=== PATIENT | male | born 1950 | race Caucasian/White ===

== ENCOUNTER 2018-03-26 09:02 | Inpatient (IN) | payer MEDICARE, MEDICAID ==
[~2018-03-26] VITALS: Ht 180.3 cm; Wt 132.2 kg
[~2018-03-26 09:02] MED LIST: ARIP10TA33 PO; ASPI325T17 PO; ATOR20TA9 PO; CARB100T3 PO; CARB1TAB43 PO; DIVA-61 PO; DIVA500T17 PO; FLUP5TAB PO; FURO20TA3 PO; LEVE500T53 PO; LEVE500T8 PO; LEVETIRACETAM; LEVO500T47 PO; LEVO50TA5 PO; LISI5TAB7 PO; METO25TA35 PO; OMEP20TA62 PO; PANT40TA5 PO; POTA10TA11 PO; POTA20TA91 PO; QUET25TA PO; QUET50TA PO; SODI1TAB PO; TRAZ-136 PO
[2018-03-26] MEDS ORDERED: DOCUSATE 100 MG CAPSULE PO PRN (13:00)
[2018-03-26] MEDS ORDERED: BISACODYL 10 MG SUPP PR PRN (13:00)
[2018-03-26] MEDS ORDERED: POLYETHYLENE GLYCOL 17 GM PACKET PO PRN (13:00)
[2018-03-26 13:20] VITALS: BP 134/97
[2018-03-26] MEDS ORDERED: PLEASE ENTER HEIGHT AND WEIGHT MC SCH (14:00)
[2018-03-26 14:20] LABS: BASOPHILS # (AUTO) 0.02 x10^3/uL (0-0.1); BASOPHILS % (AUTO) 0 % (0-1); EOSINOPHILS # (AUTO) 0.44 x10^3/uL (0-0.4); EOSINOPHILS % (AUTO) 4 % (1-7); LYMPHOCYTES # (AUTO) 1.27 x10^3/uL (1-3.4); LYMPHOCYTES % (AUTO) 12 % (22-44); MD NO; MEAN CORPUSCULAR HEMOGLOBIN 32.8 pg (27.5-34.5); MEAN CORPUSCULAR HGB CONC 34.2 g/dL (33.2-36.2); MEAN CORPUSCULAR VOLUME 95.9 fL (81-97); MEAN PLATELET VOLUME 7.7 fL (7.4-10.4); MONOCYTES % (AUTO) 7 % (2-9); NEUTROPHILS # (AUTO) 7.94 x10^3/uL (1.8-6.8); NEUTROPHILS % (AUTO) 77 % (42-75); PLATELET COUNT 279 x10^3/uL (130-400); RED BLOOD COUNT 5.01 x10^6/uL (4.38-5.82); RED CELL DISTRIBUTION WIDTH 12.9 % (9.4-14.8)
[2018-03-26 14:21] LABS: HCT (SEDRATE) 48.6 % (39.2-51.8)
[2018-03-26 14:33] LABS: ALBUMIN 4.5 g/dL (3.4-5.0); ANION GAP 8 mmol/L (5-15); CALCIUM 9.4 mg/dL (8.5-10.1); CHLORIDE 105 mmol/L (98-107)
[2018-03-26 14:57] LABS: ALANINE AMINOTRANSFERASE 27 U/L (12-78); ALKALINE PHOSPHATASE 70 U/L (45-117); BILIRUBIN,TOTAL 0.7 mg/dL (0.2-1.0); CHOL/HDL RATIO 2.8; CHOLESTEROL, TOTAL 107 mg/dL (140-239); CREATININE 1.34 mg/dL (0.7-1.3); HDL CHOL % 36 % (26-37); HDL CHOLESTEROL (DIRECT) 38 mg/dL (40-60); LDL CHOLESTEROL,CALCULATED 51 mg/dL (54-169); LDL/HDL RATIO 1.3 (0.5-3.0); TOTAL PROTEIN 8.3 g/dL (6.4-8.2); TRIGLYCERIDES 91 mg/dL (50-200); VLDL CHOLESTEROL 18 mg/dL (0-25)
[2018-03-26 15:03] LABS: FOLATE LEVEL > 20.0 ng/mL (3.1-17.5)
[2018-03-26 15:18] LABS: MICROSCOPIC NOT IND
[2018-03-26 15:21] LABS: CULTURE INDICATED? NO
[2018-03-26] MEDS: CARBIDOPA/LEVODOPA CR 25 MG/100 MG TABLET PO SCH ×2 (16:12→21:26)
[2018-03-26 19:50] VITALS: BP 168/114
[2018-03-26] MEDS: QUETIAPINE 25MG TABLET PO SCH (21:26)
[2018-03-26] MEDS: TRAZODONE 50MG TABLET PO SCH (21:26)
[2018-03-26] MEDS: DIVALPROEX 500 MG TABLET.DR PO SCH (21:26)
[2018-03-26] MEDS: ATORVASTATIN 20 MG TABLET PO SCH (21:26)
[2018-03-26] MEDS ORDERED: hydrALAzine 20 MG/ML, 1ML IV PRN (22:00)
[2018-03-26 22:55] VITALS: BP 147/123
[2018-03-27 00:46] VITALS: BP 138/92
[2018-03-27] MEDS: ACETAMINOPHEN 325 MG TABLET PO PRN (04:27)
[2018-03-27] MEDS: PANTOPROZOLE 40MG TABLET PO SCH (07:27)
[2018-03-27 07:32] VITALS: BP 147/107
[2018-03-27] MEDS ORDERED: SODIUM CHLORIDE 1 GM TABLET PO SCH (09:00)
[2018-03-27] MEDS: POTASSIUM CHLORIDE 10 MEQ TABLET.ER PO SCH (09:00)
[2018-03-27] MEDS ORDERED: POTASSIUM CHLORIDE 20 MEQ TAB.ER.PRT ONE (09:11)
[2018-03-27] MEDS: QUETIAPINE 25MG TABLET PO SCH (09:19)
[2018-03-27] MEDS: DIVALPROEX 500 MG TABLET.DR PO SCH (09:19)
[2018-03-27] MEDS: LISINOPRIL 10 MG TABLET PO SCH (09:19)
[2018-03-27] MEDS: CARBIDOPA/LEVODOPA CR 25 MG/100 MG TABLET PO SCH ×4 (09:20→21:27)
[2018-03-27] MEDS: ASPIRIN 325 MG TABLET PO SCH (09:20)
[2018-03-27] MEDS: LEVOTHYROXINE 50 MCG TABLET PO SCH (09:20)
[2018-03-27 11:13] VITALS: BP 155/96
[2018-03-27] MEDS: LEVETIRACETAM 500 MG TABLET PO SCH (11:22)
[2018-03-27 19:54] VITALS: BP 163/124
[2018-03-27] MEDS: VALPROATE SODIUM 250 MG/5 ML ORAL SOLN PO SCH (21:26)
[2018-03-27] MEDS: TRAZODONE 50MG TABLET PO SCH (21:27)
[2018-03-27] MEDS: ATORVASTATIN 20 MG TABLET PO SCH (21:27)
[2018-03-27] MEDS: RISPERIDONE 1 MG TAB.RAPDIS PO SCH (21:35)
[2018-03-28 01:49] VITALS: BP 130/89
[2018-03-28 02:31] VITALS: BP 126/87
[2018-03-28 03:03] LABS: TROPONIN I < 0.015 ng/mL (0.000-0.045)
[2018-03-28 07:24] VITALS: BP 134/95
[2018-03-28] MEDS: PANTOPROZOLE 40MG TABLET PO SCH (07:51)
[2018-03-28] MEDS ORDERED: POTASSIUM CHLORIDE 20 MEQ TAB.ER.PRT ONE (08:56)
[2018-03-28] MEDS: VALPROATE SODIUM 250 MG/5 ML ORAL SOLN PO SCH ×2 (08:59→20:02)
[2018-03-28] MEDS: ASPIRIN 325 MG TABLET PO SCH (09:00)
[2018-03-28] MEDS: LEVOTHYROXINE 50 MCG TABLET PO SCH (09:00)
[2018-03-28] MEDS: CARBIDOPA/LEVODOPA CR 25 MG/100 MG TABLET PO SCH ×3 (09:00→20:02)
[2018-03-28] MEDS: LEVETIRACETAM 500 MG TABLET PO SCH (09:00)
[2018-03-28] MEDS: RISPERIDONE 1 MG TAB.RAPDIS PO SCH ×2 (09:01→20:02)
[2018-03-28] MEDS: LISINOPRIL 10 MG TABLET PO SCH (09:01)
[2018-03-28] MEDS: POTASSIUM CHLORIDE 10 MEQ TABLET.ER PO SCH (09:06)
[2018-03-28 19:45] VITALS: BP_SYST 115; BP_SYST 166; BP_DIAS 83; BP_DIAS 85
[2018-03-28] MEDS: TRAZODONE 50MG TABLET PO SCH (20:02)
[2018-03-28] MEDS: ATORVASTATIN 20 MG TABLET PO SCH (20:02)
[2018-03-29 07:12] VITALS: BP 172/92
[2018-03-29] MEDS: PANTOPROZOLE 40MG TABLET PO SCH (07:44)
[2018-03-29] MEDS: ASPIRIN 325 MG TABLET PO SCH (08:46)
[2018-03-29] MEDS: VALPROATE SODIUM 250 MG/5 ML ORAL SOLN PO SCH ×2 (08:46→21:00)
[2018-03-29] MEDS: LISINOPRIL 10 MG TABLET PO SCH (08:46)
[2018-03-29] MEDS: CARBIDOPA/LEVODOPA CR 25 MG/100 MG TABLET PO SCH ×3 (08:46→20:48)
[2018-03-29] MEDS: LEVOTHYROXINE 50 MCG TABLET PO SCH (08:46)
[2018-03-29] MEDS: LEVETIRACETAM 500 MG TABLET PO SCH (08:46)
[2018-03-29] MEDS: POTASSIUM CHLORIDE 10 MEQ TABLET.ER PO SCH (08:46)
[2018-03-29] MEDS: RISPERIDONE 1 MG TAB.RAPDIS PO SCH ×2 (08:47→20:48)
[2018-03-29] MEDS ORDERED: LORazepam 0.5MG TABLET PO PRN (17:00)
[2018-03-29 19:55] VITALS: BP 109/81
[2018-03-29] MEDS: ATORVASTATIN 20 MG TABLET PO SCH (20:48)
[2018-03-29] MEDS: TRAZODONE 50MG TABLET PO SCH (20:48)
[2018-03-30] MEDS: PANTOPROZOLE 40MG TABLET PO SCH (07:29)
[2018-03-30 07:30] VITALS: BP 89/65
[2018-03-30 08:58] VITALS: BP 106/76
[2018-03-30] MEDS: VALPROATE SODIUM 250 MG/5 ML ORAL SOLN PO SCH (09:27)
[2018-03-30] MEDS: LISINOPRIL 10 MG TABLET PO SCH (09:27)
[2018-03-30] MEDS: CARBIDOPA/LEVODOPA CR 25 MG/100 MG TABLET PO SCH ×3 (09:27→22:14)
[2018-03-30] MEDS: ASPIRIN 325 MG TABLET PO SCH (09:27)
[2018-03-30] MEDS: POTASSIUM CHLORIDE 10 MEQ TABLET.ER PO SCH (09:27)
[2018-03-30] MEDS: LEVETIRACETAM 500 MG TABLET PO SCH (09:27)
[2018-03-30] MEDS: RISPERIDONE 1 MG TAB.RAPDIS PO SCH ×2 (09:28→22:14)
[2018-03-30] MEDS: LEVOTHYROXINE 50 MCG TABLET PO SCH (09:28)
[2018-03-30 20:00] VITALS: BP 114/78
[2018-03-30] MEDS: ATORVASTATIN 20 MG TABLET PO SCH (22:14)
[2018-03-30] MEDS: DIVALPROEX 250 MG TABLET.DR PO SCH (22:14)
[2018-03-30] MEDS: TRAZODONE 50MG TABLET PO SCH (22:14)
[2018-03-31] MEDS: PANTOPROZOLE 40MG TABLET PO SCH (07:42)
[2018-03-31 07:46] VITALS: BP 100/85
[2018-03-31] MEDS: CARBIDOPA/LEVODOPA CR 25 MG/100 MG TABLET PO SCH ×3 (08:14→20:18)
[2018-03-31] MEDS: LEVETIRACETAM 500 MG TABLET PO SCH (08:14)
[2018-03-31] MEDS: POTASSIUM CHLORIDE 10 MEQ TABLET.ER PO SCH (08:14)
[2018-03-31] MEDS: ASPIRIN 325 MG TABLET PO SCH (08:14)
[2018-03-31] MEDS: DIVALPROEX 250 MG TABLET.DR PO SCH ×2 (08:14→20:17)
[2018-03-31] MEDS: LISINOPRIL 10 MG TABLET PO SCH (08:15)
[2018-03-31] MEDS: RISPERIDONE 1 MG TAB.RAPDIS PO SCH ×2 (08:15→20:17)
[2018-03-31] MEDS: LEVOTHYROXINE 50 MCG TABLET PO SCH (08:49)
[2018-03-31 19:59] VITALS: BP 144/66
[2018-03-31] MEDS: TRAZODONE 50MG TABLET PO SCH (20:17)
[2018-03-31] MEDS: ATORVASTATIN 20 MG TABLET PO SCH (20:17)
[2018-03-31] MEDS: NYSTATIN TOPICAL POWDER 15GM TP SCH (20:18)
[2018-04-01] MEDS: PANTOPROZOLE 40MG TABLET PO SCH (07:30)
[2018-04-01 08:11] VITALS: BP 123/93
[2018-04-01] MEDS: ASPIRIN 325 MG TABLET PO SCH (09:33)
[2018-04-01] MEDS: DIVALPROEX 250 MG TABLET.DR PO SCH ×2 (09:34→20:35)
[2018-04-01] MEDS: CARBIDOPA/LEVODOPA CR 25 MG/100 MG TABLET PO SCH ×3 (09:34→20:36)
[2018-04-01] MEDS: LEVETIRACETAM 500 MG TABLET PO SCH (09:34)
[2018-04-01] MEDS: LISINOPRIL 10 MG TABLET PO SCH (09:34)
[2018-04-01] MEDS: LEVOTHYROXINE 50 MCG TABLET PO SCH (09:35)
[2018-04-01] MEDS: POTASSIUM CHLORIDE 10 MEQ TABLET.ER PO SCH (09:38)
[2018-04-01] MEDS: NYSTATIN TOPICAL POWDER 15GM TP SCH ×2 (09:39→20:35)
[2018-04-01] MEDS: RISPERIDONE 1 MG TAB.RAPDIS PO SCH ×2 (09:40→22:36)
[2018-04-01] MEDS: ACETAMINOPHEN 325 MG TABLET PO PRN (19:19)
[2018-04-01 19:41] VITALS: BP 114/84
[2018-04-01] MEDS: ATORVASTATIN 20 MG TABLET PO SCH (20:35)
[2018-04-01] MEDS: TRAZODONE 50MG TABLET PO SCH (20:36)
[2018-04-02 07:30] VITALS: BP 134/89
[2018-04-02] MEDS: ASPIRIN 325 MG TABLET PO SCH (08:54)
[2018-04-02] MEDS: DIVALPROEX 250 MG TABLET.DR PO SCH ×2 (08:54→21:38)
[2018-04-02] MEDS: LISINOPRIL 10 MG TABLET PO SCH (08:54)
[2018-04-02] MEDS: LEVOTHYROXINE 50 MCG TABLET PO SCH (08:55)
[2018-04-02] MEDS: RISPERIDONE 1 MG TAB.RAPDIS PO SCH ×2 (08:55→21:37)
[2018-04-02] MEDS: CARBIDOPA/LEVODOPA CR 25 MG/100 MG TABLET PO SCH ×3 (08:55→21:38)
[2018-04-02] MEDS: POTASSIUM CHLORIDE 10 MEQ TABLET.ER PO SCH (08:56)
[2018-04-02] MEDS: LEVETIRACETAM 500 MG TABLET PO SCH (08:56)
[2018-04-02] MEDS: PANTOPROZOLE 40MG TABLET PO SCH (08:56)
[2018-04-02] MEDS: NYSTATIN TOPICAL POWDER 15GM TP SCH ×2 (09:00→22:00)
[2018-04-02 19:42] VITALS: BP 146/97
[2018-04-02] MEDS: TRAZODONE 50MG TABLET PO SCH (21:38)
[2018-04-02] MEDS: ATORVASTATIN 20 MG TABLET PO SCH (21:38)
[2018-04-03] MEDS: PANTOPROZOLE 40MG TABLET PO SCH (08:24)
[2018-04-03] MEDS: NYSTATIN TOPICAL POWDER 15GM TP SCH ×2 (09:48→22:03)
[2018-04-03] MEDS: ACETAMINOPHEN 325 MG TABLET PO PRN (09:49)
[2018-04-03] MEDS: RISPERIDONE 1 MG TAB.RAPDIS PO SCH ×2 (09:49→21:27)
[2018-04-03] MEDS: LEVOTHYROXINE 50 MCG TABLET PO SCH (09:49)
[2018-04-03] MEDS: DIVALPROEX 250 MG TABLET.DR PO SCH ×2 (09:49→21:26)
[2018-04-03] MEDS: ASPIRIN 325 MG TABLET PO SCH (09:50)
[2018-04-03] MEDS: LEVETIRACETAM 500 MG TABLET PO SCH (09:50)
[2018-04-03] MEDS: CARBIDOPA/LEVODOPA CR 25 MG/100 MG TABLET PO SCH ×3 (09:50→21:26)
[2018-04-03] MEDS: POTASSIUM CHLORIDE 10 MEQ TABLET.ER PO SCH (09:50)
[2018-04-03] MEDS: LISINOPRIL 10 MG TABLET PO SCH (09:50)
[2018-04-03 11:00] VITALS: BP 105/76
[2018-04-03 14:37] VITALS: BP 110/84
[2018-04-03 19:35] VITALS: BP 107/74
[2018-04-03] MEDS: TRAZODONE 50MG TABLET PO SCH (21:26)
[2018-04-03] MEDS: ATORVASTATIN 20 MG TABLET PO SCH (21:26)
[2018-04-04 07:26] VITALS: BP 107/82
[2018-04-04] MEDS: LEVOTHYROXINE 50 MCG TABLET PO SCH (08:08)
[2018-04-04] MEDS: DIVALPROEX 250 MG TABLET.DR PO SCH ×2 (08:08→21:15)
[2018-04-04] MEDS: LEVETIRACETAM 500 MG TABLET PO SCH (08:08)
[2018-04-04] MEDS: CARBIDOPA/LEVODOPA CR 25 MG/100 MG TABLET PO SCH ×3 (08:08→21:16)
[2018-04-04] MEDS: LISINOPRIL 10 MG TABLET PO SCH (08:08)
[2018-04-04] MEDS: ASPIRIN 325 MG TABLET PO SCH (08:08)
[2018-04-04] MEDS: POTASSIUM CHLORIDE 10 MEQ TABLET.ER PO SCH (08:16)
[2018-04-04] MEDS: RISPERIDONE 1 MG TAB.RAPDIS PO SCH ×2 (08:17→21:15)
[2018-04-04] MEDS: PANTOPROZOLE 40MG TABLET PO SCH (08:17)
[2018-04-04] MEDS: NYSTATIN TOPICAL POWDER 15GM TP SCH ×2 (10:00→21:16)
[2018-04-04 19:52] VITALS: BP 118/86
[2018-04-04] MEDS: TRAZODONE 50MG TABLET PO SCH (21:15)
[2018-04-04] MEDS: ATORVASTATIN 20 MG TABLET PO SCH (21:15)
[2018-04-05 07:28] VITALS: BP 151/93
[2018-04-05] MEDS: PANTOPROZOLE 40MG TABLET PO SCH (07:53)
[2018-04-05] MEDS: LEVOTHYROXINE 50 MCG TABLET PO SCH (09:12)
[2018-04-05] MEDS: LEVETIRACETAM 500 MG TABLET PO SCH (09:12)
[2018-04-05] MEDS: RISPERIDONE 1 MG TAB.RAPDIS PO SCH ×2 (09:12→20:16)
[2018-04-05] MEDS: CARBIDOPA/LEVODOPA CR 25 MG/100 MG TABLET PO SCH ×3 (09:12→20:15)
[2018-04-05] MEDS: ASPIRIN 325 MG TABLET PO SCH (09:13)
[2018-04-05] MEDS: LISINOPRIL 10 MG TABLET PO SCH (09:13)
[2018-04-05] MEDS: DIVALPROEX 250 MG TABLET.DR PO SCH ×2 (09:13→20:15)
[2018-04-05] MEDS: POTASSIUM CHLORIDE 10 MEQ TABLET.ER PO SCH (09:25)
[2018-04-05] MEDS: NYSTATIN TOPICAL POWDER 15GM TP SCH ×2 (09:26→20:16)
[2018-04-05 19:52] VITALS: BP 127/89
[2018-04-05] MEDS: TRAZODONE 50MG TABLET PO SCH (20:15)
[2018-04-05] MEDS: ATORVASTATIN 20 MG TABLET PO SCH (20:25)
[2018-04-06 07:32] VITALS: BP 108/75
[2018-04-06] MEDS: ASPIRIN 325 MG TABLET PO SCH (07:36)
[2018-04-06] MEDS: LEVOTHYROXINE 50 MCG TABLET PO SCH (07:37)
[2018-04-06] MEDS: PANTOPROZOLE 40MG TABLET PO SCH (07:37)
[2018-04-06] MEDS: CARBIDOPA/LEVODOPA CR 25 MG/100 MG TABLET PO SCH ×3 (07:37→20:32)
[2018-04-06] MEDS: RISPERIDONE 1 MG TAB.RAPDIS PO SCH ×2 (08:30→20:32)
[2018-04-06] MEDS: POTASSIUM CHLORIDE 10 MEQ TABLET.ER PO SCH (08:30)
[2018-04-06] MEDS: LEVETIRACETAM 500 MG TABLET PO SCH (08:30)
[2018-04-06] MEDS: LISINOPRIL 10 MG TABLET PO SCH (08:30)
[2018-04-06] MEDS: DIVALPROEX 250 MG TABLET.DR PO SCH ×2 (08:30→20:32)
[2018-04-06] MEDS: NYSTATIN TOPICAL POWDER 15GM TP SCH ×2 (08:32→20:32)
[2018-04-06 19:52] VITALS: BP_SYST 118; BP_SYST 152; BP_DIAS 69; BP_DIAS 87
[2018-04-06] MEDS: TRAZODONE 50MG TABLET PO SCH (20:32)
[2018-04-06] MEDS: ATORVASTATIN 20 MG TABLET PO SCH (20:32)
[2018-04-07 07:30] VITALS: BP 110/74
[2018-04-07] MEDS: LEVOTHYROXINE 50 MCG TABLET PO SCH (07:59)
[2018-04-07] MEDS: ASPIRIN 325 MG TABLET PO SCH (07:59)
[2018-04-07] MEDS: PANTOPROZOLE 40MG TABLET PO SCH (07:59)
[2018-04-07] MEDS: POTASSIUM CHLORIDE 10 MEQ TABLET.ER PO SCH (09:32)
[2018-04-07] MEDS: RISPERIDONE 1 MG TAB.RAPDIS PO SCH ×2 (09:32→20:50)
[2018-04-07] MEDS: DIVALPROEX 250 MG TABLET.DR PO SCH ×2 (09:33→20:50)
[2018-04-07] MEDS: LISINOPRIL 10 MG TABLET PO SCH (09:33)
[2018-04-07] MEDS: CARBIDOPA/LEVODOPA CR 25 MG/100 MG TABLET PO SCH ×3 (09:33→20:50)
[2018-04-07] MEDS: LEVETIRACETAM 500 MG TABLET PO SCH (09:33)
[2018-04-07] MEDS: NYSTATIN TOPICAL POWDER 15GM TP SCH ×2 (09:44→21:00)
[2018-04-07 19:30] VITALS: BP 99/64
[2018-04-07] MEDS: ATORVASTATIN 20 MG TABLET PO SCH (20:50)
[2018-04-07] MEDS: TRAZODONE 50MG TABLET PO SCH (20:50)
[2018-04-08] MEDS: PANTOPROZOLE 40MG TABLET PO SCH (07:06)
[2018-04-08 07:35] VITALS: BP 105/73
[2018-04-08] MEDS: ASPIRIN 325 MG TABLET PO SCH (09:00)
[2018-04-08] MEDS: CARBIDOPA/LEVODOPA CR 25 MG/100 MG TABLET PO SCH ×3 (09:10→20:43)
[2018-04-08] MEDS: DIVALPROEX 250 MG TABLET.DR PO SCH ×2 (09:11→20:43)
[2018-04-08] MEDS: POTASSIUM CHLORIDE 10 MEQ TABLET.ER PO SCH (09:11)
[2018-04-08] MEDS: LEVOTHYROXINE 50 MCG TABLET PO SCH (09:11)
[2018-04-08] MEDS: LEVETIRACETAM 500 MG TABLET PO SCH (09:11)
[2018-04-08] MEDS: LISINOPRIL 10 MG TABLET PO SCH (09:11)
[2018-04-08] MEDS: RISPERIDONE 1 MG TAB.RAPDIS PO SCH ×2 (09:12→20:43)
[2018-04-08] MEDS: NYSTATIN TOPICAL POWDER 15GM TP SCH ×2 (09:27→20:43)
[2018-04-08 19:58] VITALS: BP 102/69
[2018-04-08] MEDS: TRAZODONE 50MG TABLET PO SCH (20:42)
[2018-04-08] MEDS: ATORVASTATIN 20 MG TABLET PO SCH (20:43)
[2018-04-09] MEDS: PANTOPROZOLE 40MG TABLET PO SCH (07:28)
[2018-04-09 07:34] VITALS: BP 114/78
[2018-04-09] MEDS ORDERED: LEVOTHYROXINE 100 MCG TABLET ONE (08:55)
[2018-04-09] MEDS: ASPIRIN 325 MG TABLET PO SCH (08:57)
[2018-04-09] MEDS: DIVALPROEX 250 MG TABLET.DR PO SCH ×2 (08:57→21:13)
[2018-04-09] MEDS: LEVETIRACETAM 500 MG TABLET PO SCH (08:57)
[2018-04-09] MEDS: LISINOPRIL 10 MG TABLET PO SCH (08:58)
[2018-04-09] MEDS: POTASSIUM CHLORIDE 10 MEQ TABLET.ER PO SCH (08:58)
[2018-04-09] MEDS: CARBIDOPA/LEVODOPA CR 25 MG/100 MG TABLET PO SCH ×3 (08:58→21:13)
[2018-04-09] MEDS: LEVOTHYROXINE 50 MCG TABLET PO SCH (08:59)
[2018-04-09] MEDS: NYSTATIN TOPICAL POWDER 15GM TP SCH ×2 (09:00→21:13)
[2018-04-09] MEDS: RISPERIDONE 1 MG TAB.RAPDIS PO SCH ×2 (09:03→21:13)
[2018-04-09 19:33] VITALS: BP 123/64
[2018-04-09] MEDS: TRAZODONE 50MG TABLET PO SCH (21:13)
[2018-04-09] MEDS: ATORVASTATIN 20 MG TABLET PO SCH (21:13)
[2018-04-10] MEDS: PANTOPROZOLE 40MG TABLET PO SCH (07:35)
[2018-04-10 07:40] VITALS: BP 106/48
[2018-04-10] MEDS: ASPIRIN 325 MG TABLET PO SCH (08:48)
[2018-04-10] MEDS: LEVETIRACETAM 500 MG TABLET PO SCH (08:49)
[2018-04-10] MEDS: POTASSIUM CHLORIDE 10 MEQ TABLET.ER PO SCH (08:49)
[2018-04-10] MEDS: LISINOPRIL 10 MG TABLET PO SCH (08:49)
[2018-04-10] MEDS: DIVALPROEX 250 MG TABLET.DR PO SCH ×2 (08:49→22:14)
[2018-04-10] MEDS: RISPERIDONE 1 MG TAB.RAPDIS PO SCH ×2 (08:50→22:13)
[2018-04-10] MEDS: CARBIDOPA/LEVODOPA CR 25 MG/100 MG TABLET PO SCH ×3 (08:50→22:14)
[2018-04-10] MEDS: NYSTATIN TOPICAL POWDER 15GM TP SCH ×2 (08:50→22:14)
[2018-04-10] MEDS: LEVOTHYROXINE 50 MCG TABLET PO SCH (08:50)
[2018-04-10 19:42] VITALS: BP 117/65
[2018-04-10] MEDS: ATORVASTATIN 20 MG TABLET PO SCH (22:14)
[2018-04-10] MEDS: TRAZODONE 50MG TABLET PO SCH (22:15)
[2018-04-11] MEDS: PANTOPROZOLE 40MG TABLET PO SCH (07:59)
[2018-04-11 08:48] VITALS: BP 124/71
[2018-04-11] MEDS: NYSTATIN TOPICAL POWDER 15GM TP SCH ×2 (09:00→20:40)
[2018-04-11] MEDS: ASPIRIN 325 MG TABLET PO SCH (09:00)
[2018-04-11] MEDS: CARBIDOPA/LEVODOPA CR 25 MG/100 MG TABLET PO SCH ×3 (09:47→20:39)
[2018-04-11] MEDS: DIVALPROEX 250 MG TABLET.DR PO SCH ×2 (09:47→20:39)
[2018-04-11] MEDS: LEVETIRACETAM 500 MG TABLET PO SCH (09:47)
[2018-04-11] MEDS: LEVOTHYROXINE 50 MCG TABLET PO SCH (09:47)
[2018-04-11] MEDS: RISPERIDONE 1 MG TAB.RAPDIS PO SCH ×2 (09:48→20:39)
[2018-04-11] MEDS: POTASSIUM CHLORIDE 10 MEQ TABLET.ER PO SCH (09:48)
[2018-04-11] MEDS: LISINOPRIL 10 MG TABLET PO SCH (09:48)
[2018-04-11 19:27] VITALS: BP 118/80
[2018-04-11] MEDS: TRAZODONE 50MG TABLET PO SCH (20:39)
[2018-04-11] MEDS: ATORVASTATIN 20 MG TABLET PO SCH (20:39)
[2018-04-12] MEDS: CARBIDOPA/LEVODOPA CR 25 MG/100 MG TABLET PO SCH ×3 (08:03→21:11)
[2018-04-12] MEDS: POTASSIUM CHLORIDE 10 MEQ TABLET.ER PO SCH (08:03)
[2018-04-12] MEDS: LEVOTHYROXINE 50 MCG TABLET PO SCH (08:03)
[2018-04-12] MEDS: LEVETIRACETAM 500 MG TABLET PO SCH (08:03)
[2018-04-12] MEDS: ASPIRIN 325 MG TABLET PO SCH (08:03)
[2018-04-12] MEDS: DIVALPROEX 250 MG TABLET.DR PO SCH ×2 (08:03→21:10)
[2018-04-12] MEDS: PANTOPROZOLE 40MG TABLET PO SCH (08:03)
[2018-04-12] MEDS: RISPERIDONE 1 MG TAB.RAPDIS PO SCH ×2 (08:04→21:11)
[2018-04-12] MEDS: LISINOPRIL 10 MG TABLET PO SCH (08:04)
[2018-04-12 08:20] VITALS: BP 119/75
[2018-04-12] MEDS: NYSTATIN TOPICAL POWDER 15GM TP SCH ×2 (09:44→21:12)
[2018-04-12 19:45] VITALS: BP 152/93
[2018-04-12] MEDS: ATORVASTATIN 20 MG TABLET PO SCH (21:10)
[2018-04-12] MEDS: TRAZODONE 50MG TABLET PO SCH (21:11)
[2018-04-13] MEDS: PANTOPROZOLE 40MG TABLET PO SCH (07:37)
[2018-04-13 07:59] VITALS: BP 109/73
[2018-04-13] MEDS: ASPIRIN 325 MG TABLET PO SCH (08:05)
[2018-04-13] MEDS: RISPERIDONE 1 MG TAB.RAPDIS PO SCH ×2 (08:05→21:51)
[2018-04-13] MEDS: LEVETIRACETAM 500 MG TABLET PO SCH (08:05)
[2018-04-13] MEDS: LISINOPRIL 10 MG TABLET PO SCH (08:06)
[2018-04-13] MEDS: CARBIDOPA/LEVODOPA CR 25 MG/100 MG TABLET PO SCH ×3 (08:06→21:51)
[2018-04-13] MEDS: DIVALPROEX 250 MG TABLET.DR PO SCH ×2 (08:06→21:52)
[2018-04-13] MEDS: POTASSIUM CHLORIDE 10 MEQ TABLET.ER PO SCH (08:06)
[2018-04-13] MEDS: NYSTATIN TOPICAL POWDER 15GM TP SCH ×2 (09:29→21:00)
[2018-04-13 19:31] VITALS: BP 118/69
[2018-04-13] MEDS: ATORVASTATIN 20 MG TABLET PO SCH (21:51)
[2018-04-13] MEDS: TRAZODONE 50MG TABLET PO SCH (21:52)
[2018-04-14] MEDS: LEVOTHYROXINE 50 MCG TABLET PO SCH (07:13)
[2018-04-14] MEDS: PANTOPROZOLE 40MG TABLET PO SCH (07:16)
[2018-04-14 07:54] VITALS: BP 106/77
[2018-04-14] MEDS: DIVALPROEX 250 MG TABLET.DR PO SCH ×2 (08:25→19:58)
[2018-04-14] MEDS: RISPERIDONE 1 MG TAB.RAPDIS PO SCH ×2 (08:25→19:57)
[2018-04-14] MEDS: POTASSIUM CHLORIDE 10 MEQ TABLET.ER PO SCH (08:25)
[2018-04-14] MEDS: ASPIRIN 325 MG TABLET PO SCH (08:25)
[2018-04-14] MEDS: LISINOPRIL 10 MG TABLET PO SCH (08:26)
[2018-04-14] MEDS: LEVETIRACETAM 500 MG TABLET PO SCH (08:26)
[2018-04-14] MEDS: CARBIDOPA/LEVODOPA CR 25 MG/100 MG TABLET PO SCH ×3 (08:26→19:58)
[2018-04-14] MEDS: NYSTATIN TOPICAL POWDER 15GM TP SCH ×3 (08:44→20:00)
[2018-04-14 19:19] VITALS: BP 131/90
[2018-04-14] MEDS: ATORVASTATIN 20 MG TABLET PO SCH (19:58)
[2018-04-14] MEDS: TRAZODONE 50MG TABLET PO SCH (19:58)
[2018-04-15] MEDS: LEVOTHYROXINE 50 MCG TABLET PO SCH (05:43)
[2018-04-15 08:00] VITALS: BP 109/79
[2018-04-15] MEDS: LEVETIRACETAM 500 MG TABLET PO SCH (08:24)
[2018-04-15] MEDS: DIVALPROEX 250 MG TABLET.DR PO SCH (08:24)
[2018-04-15] MEDS: ASPIRIN 325 MG TABLET PO SCH (08:24)
[2018-04-15] MEDS: PANTOPROZOLE 40MG TABLET PO SCH (08:24)
[2018-04-15] MEDS: LISINOPRIL 10 MG TABLET PO SCH (08:24)
[2018-04-15] MEDS: RISPERIDONE 1 MG TAB.RAPDIS PO SCH ×2 (08:24→20:56)
[2018-04-15] MEDS: CARBIDOPA/LEVODOPA CR 25 MG/100 MG TABLET PO SCH ×3 (08:24→20:56)
[2018-04-15] MEDS: POTASSIUM CHLORIDE 10 MEQ TABLET.ER PO SCH (08:24)
[2018-04-15] MEDS: NYSTATIN TOPICAL POWDER 15GM TP SCH ×2 (09:31→20:56)
[2018-04-15 19:59] VITALS: BP 124/84
[2018-04-15] MEDS: ATORVASTATIN 20 MG TABLET PO SCH (20:56)
[2018-04-15] MEDS: OXCARBAZEPINE 300MG TABLET PO SCH (20:56)
[2018-04-15] MEDS: TRAZODONE 50MG TABLET PO SCH (20:56)
[2018-04-16] MEDS: LEVOTHYROXINE 50 MCG TABLET PO SCH (05:37)
[2018-04-16] MEDS: PANTOPROZOLE 40MG TABLET PO SCH (07:40)
[2018-04-16 07:59] VITALS: BP 132/84
[2018-04-16] MEDS: ASPIRIN 325 MG TABLET PO SCH (08:32)
[2018-04-16] MEDS: LISINOPRIL 10 MG TABLET PO SCH (08:32)
[2018-04-16] MEDS: OXCARBAZEPINE 300MG TABLET PO SCH ×2 (08:32→21:37)
[2018-04-16] MEDS: LEVETIRACETAM 500 MG TABLET PO SCH (08:32)
[2018-04-16] MEDS: POTASSIUM CHLORIDE 10 MEQ TABLET.ER PO SCH (08:32)
[2018-04-16] MEDS: RISPERIDONE 1 MG TAB.RAPDIS PO SCH ×2 (08:33→21:37)
[2018-04-16] MEDS: CARBIDOPA/LEVODOPA CR 25 MG/100 MG TABLET PO SCH ×3 (09:01→21:37)
[2018-04-16] MEDS: NYSTATIN TOPICAL POWDER 15GM TP SCH ×2 (09:01→21:37)
[2018-04-16 19:46] VITALS: BP 131/91
[2018-04-16] MEDS: ATORVASTATIN 20 MG TABLET PO SCH (21:36)
[2018-04-16] MEDS: TRAZODONE 50MG TABLET PO SCH (21:37)
[2018-04-17] MEDS: LEVOTHYROXINE 50 MCG TABLET PO SCH (06:17)
[2018-04-17 07:50] VITALS: BP 150/95
[2018-04-17] MEDS: POTASSIUM CHLORIDE 10 MEQ TABLET.ER PO SCH (08:07)
[2018-04-17] MEDS: OXCARBAZEPINE 300MG TABLET PO SCH ×2 (08:07→19:51)
[2018-04-17] MEDS: PANTOPROZOLE 40MG TABLET PO SCH (08:07)
[2018-04-17] MEDS: LEVETIRACETAM 500 MG TABLET PO SCH (08:07)
[2018-04-17] MEDS: RISPERIDONE 1 MG TAB.RAPDIS PO SCH ×2 (08:07→19:51)
[2018-04-17] MEDS: LISINOPRIL 10 MG TABLET PO SCH (08:07)
[2018-04-17] MEDS: CARBIDOPA/LEVODOPA CR 25 MG/100 MG TABLET PO SCH ×3 (08:07→19:51)
[2018-04-17] MEDS: ASPIRIN 325 MG TABLET PO SCH (08:10)
[2018-04-17] MEDS: NYSTATIN TOPICAL POWDER 15GM TP SCH ×2 (08:10→19:51)
[2018-04-17 19:40] VITALS: BP 113/77
[2018-04-17] MEDS: TRAZODONE 50MG TABLET PO SCH (19:50)
[2018-04-17] MEDS: ATORVASTATIN 20 MG TABLET PO SCH (19:51)
[2018-04-18] MEDS: LEVOTHYROXINE 50 MCG TABLET PO SCH (05:45)
[2018-04-18 07:22] VITALS: BP 142/76
[2018-04-18] MEDS: LEVETIRACETAM 500 MG TABLET PO SCH (08:11)
[2018-04-18] MEDS: POTASSIUM CHLORIDE 10 MEQ TABLET.ER PO SCH (08:11)
[2018-04-18] MEDS: LISINOPRIL 10 MG TABLET PO SCH (08:11)
[2018-04-18] MEDS: CARBIDOPA/LEVODOPA CR 25 MG/100 MG TABLET PO SCH ×3 (08:11→19:37)
[2018-04-18] MEDS: PANTOPROZOLE 40MG TABLET PO SCH (08:11)
[2018-04-18] MEDS: RISPERIDONE 1 MG TAB.RAPDIS PO SCH ×2 (08:12→19:37)
[2018-04-18] MEDS: OXCARBAZEPINE 300MG TABLET PO SCH ×2 (08:12→19:37)
[2018-04-18] MEDS: ASPIRIN 325 MG TABLET PO SCH (08:12)
[2018-04-18] MEDS: NYSTATIN TOPICAL POWDER 15GM TP SCH ×2 (09:39→19:41)
[2018-04-18] MEDS: TRAZODONE 50MG TABLET PO SCH (19:37)
[2018-04-18] MEDS: ATORVASTATIN 20 MG TABLET PO SCH (19:37)
[2018-04-18 19:40] VITALS: BP 101/67
[2018-04-19] MEDS: LEVOTHYROXINE 50 MCG TABLET PO SCH (04:45)
[2018-04-19 07:44] VITALS: BP 94/66
[2018-04-19] MEDS: RISPERIDONE 1 MG TAB.RAPDIS PO SCH ×2 (08:36→20:24)
[2018-04-19] MEDS: ASPIRIN 325 MG TABLET PO SCH (08:36)
[2018-04-19] MEDS: POTASSIUM CHLORIDE 10 MEQ TABLET.ER PO SCH (08:36)
[2018-04-19] MEDS: LEVETIRACETAM 500 MG TABLET PO SCH (08:36)
[2018-04-19] MEDS: PANTOPROZOLE 40MG TABLET PO SCH (08:36)
[2018-04-19] MEDS: OXCARBAZEPINE 300MG TABLET PO SCH ×2 (08:36→20:24)
[2018-04-19] MEDS: CARBIDOPA/LEVODOPA CR 25 MG/100 MG TABLET PO SCH ×3 (08:36→20:24)
[2018-04-19] MEDS: LISINOPRIL 10 MG TABLET PO SCH (08:36)
[2018-04-19] MEDS: NYSTATIN TOPICAL POWDER 15GM TP SCH ×2 (10:00→20:25)
[2018-04-19 19:28] VITALS: BP 138/93
[2018-04-19] MEDS: ATORVASTATIN 20 MG TABLET PO SCH (20:24)
[2018-04-19] MEDS: TRAZODONE 50MG TABLET PO SCH (20:24)
[2018-04-20] MEDS: LEVOTHYROXINE 50 MCG TABLET PO SCH (05:43)
[2018-04-20 07:07] VITALS: BP 114/83
[2018-04-20] MEDS: OXCARBAZEPINE 300MG TABLET PO SCH ×2 (08:16→20:45)
[2018-04-20] MEDS: CARBIDOPA/LEVODOPA CR 25 MG/100 MG TABLET PO SCH ×3 (08:16→20:45)
[2018-04-20] MEDS: ASPIRIN 325 MG TABLET PO SCH (08:16)
[2018-04-20] MEDS: PANTOPROZOLE 40MG TABLET PO SCH (08:16)
[2018-04-20] MEDS: POTASSIUM CHLORIDE 10 MEQ TABLET.ER PO SCH (08:17)
[2018-04-20] MEDS: RISPERIDONE 1 MG TAB.RAPDIS PO SCH (08:17)
[2018-04-20] MEDS: LEVETIRACETAM 500 MG TABLET PO SCH (08:17)
[2018-04-20] MEDS: LISINOPRIL 10 MG TABLET PO SCH (08:17)
[2018-04-20] MEDS: NYSTATIN TOPICAL POWDER 15GM TP SCH ×2 (09:38→20:49)
[2018-04-20 19:32] VITALS: BP 115/83
[2018-04-20] MEDS: ATORVASTATIN 20 MG TABLET PO SCH (20:45)
[2018-04-20] MEDS: TRAZODONE 50MG TABLET PO SCH (20:45)
[2018-04-21] MEDS: LEVOTHYROXINE 50 MCG TABLET PO SCH (06:20)
[2018-04-21 07:13] VITALS: BP 117/76
[2018-04-21] MEDS: PANTOPROZOLE 40MG TABLET PO SCH (07:29)
[2018-04-21] MEDS: OXCARBAZEPINE 300MG TABLET PO SCH ×2 (08:18→21:20)
[2018-04-21] MEDS: CARBIDOPA/LEVODOPA CR 25 MG/100 MG TABLET PO SCH ×3 (08:19→21:20)
[2018-04-21] MEDS: LEVETIRACETAM 500 MG TABLET PO SCH (08:19)
[2018-04-21] MEDS: POTASSIUM CHLORIDE 10 MEQ TABLET.ER PO SCH (08:19)
[2018-04-21] MEDS: LISINOPRIL 10 MG TABLET PO SCH (08:20)
[2018-04-21] MEDS: ASPIRIN 325 MG TABLET PO SCH (08:20)
[2018-04-21] MEDS: NYSTATIN TOPICAL POWDER 15GM TP SCH ×2 (09:00→21:21)
[2018-04-21 19:03] VITALS: BP 106/71
[2018-04-21] MEDS: TRAZODONE 50MG TABLET PO SCH (21:20)
[2018-04-21] MEDS: ATORVASTATIN 20 MG TABLET PO SCH (21:20)
[2018-04-22] MEDS: LEVOTHYROXINE 50 MCG TABLET PO SCH (06:00)
[2018-04-22 07:30] VITALS: BP 116/83
[2018-04-22] MEDS: ASPIRIN 325 MG TABLET PO SCH (09:00)
[2018-04-22] MEDS: NYSTATIN TOPICAL POWDER 15GM TP SCH ×2 (09:00→21:04)
[2018-04-22] MEDS: LEVETIRACETAM 500 MG TABLET PO SCH (09:01)
[2018-04-22] MEDS: POTASSIUM CHLORIDE 10 MEQ TABLET.ER PO SCH (09:01)
[2018-04-22] MEDS: CARBIDOPA/LEVODOPA CR 25 MG/100 MG TABLET PO SCH ×3 (09:01→21:03)
[2018-04-22] MEDS: OXCARBAZEPINE 300MG TABLET PO SCH ×2 (09:02→21:03)
[2018-04-22] MEDS: PANTOPROZOLE 40MG TABLET PO SCH (09:02)
[2018-04-22] MEDS: LISINOPRIL 10 MG TABLET PO SCH (09:02)
[2018-04-22 19:46] VITALS: BP 123/86
[2018-04-22] MEDS: TRAZODONE 50MG TABLET PO SCH (21:03)
[2018-04-22] MEDS: ATORVASTATIN 20 MG TABLET PO SCH (21:03)
[2018-04-23] MEDS: LEVOTHYROXINE 50 MCG TABLET PO SCH (06:28)
[2018-04-23 07:22] VITALS: BP 123/87
[2018-04-23] MEDS: PANTOPROZOLE 40MG TABLET PO SCH (08:11)
[2018-04-23] MEDS: ASPIRIN 325 MG TABLET PO SCH (08:11)
[2018-04-23] MEDS: LISINOPRIL 10 MG TABLET PO SCH (08:11)
[2018-04-23] MEDS: CARBIDOPA/LEVODOPA CR 25 MG/100 MG TABLET PO SCH ×3 (08:11→20:43)
[2018-04-23] MEDS: POTASSIUM CHLORIDE 10 MEQ TABLET.ER PO SCH (08:11)
[2018-04-23] MEDS: OXCARBAZEPINE 300MG TABLET PO SCH ×2 (08:11→20:43)
[2018-04-23] MEDS: LEVETIRACETAM 500 MG TABLET PO SCH (08:11)
[2018-04-23] MEDS: NYSTATIN TOPICAL POWDER 15GM TP SCH ×2 (09:00→20:43)
[2018-04-23 19:19] VITALS: BP 114/72
[2018-04-23] MEDS: ATORVASTATIN 20 MG TABLET PO SCH (20:43)
[2018-04-23] MEDS: TRAZODONE 50MG TABLET PO SCH (20:43)
[2018-04-24] MEDS: LEVOTHYROXINE 50 MCG TABLET PO SCH (05:29)
[2018-04-24] MEDS: PANTOPROZOLE 40MG TABLET PO SCH (07:26)
[2018-04-24 07:36] VITALS: BP 111/80
[2018-04-24] MEDS: LEVETIRACETAM 500 MG TABLET PO SCH (08:03)
[2018-04-24] MEDS: CARBIDOPA/LEVODOPA CR 25 MG/100 MG TABLET PO SCH ×3 (08:03→20:43)
[2018-04-24] MEDS: OXCARBAZEPINE 300MG TABLET PO SCH ×2 (08:03→20:43)
[2018-04-24] MEDS: POTASSIUM CHLORIDE 10 MEQ TABLET.ER PO SCH (08:03)
[2018-04-24] MEDS: ASPIRIN 325 MG TABLET PO SCH (08:04)
[2018-04-24] MEDS: LISINOPRIL 10 MG TABLET PO SCH (08:05)
[2018-04-24] MEDS: NYSTATIN TOPICAL POWDER 15GM TP SCH ×2 (09:00→20:43)
[2018-04-24] MEDS ORDERED: POLY17PO5 PO (18:26)
[2018-04-24] MEDS ORDERED: CARB1TAB43 PO (18:26)
[2018-04-24] MEDS ORDERED: OXCA300T19 PO (18:26)
[2018-04-24] MEDS ORDERED: ASPI325T17 PO (18:26)
[2018-04-24] MEDS ORDERED: PANT40TA5 PO (18:26)
[2018-04-24] MEDS ORDERED: NYST60PO TP (18:26)
[2018-04-24] MEDS ORDERED: ATOR20TA9 PO (18:26)
[2018-04-24] MEDS ORDERED: POTA10TA5 PO (18:26)
[2018-04-24] MEDS ORDERED: DOCU-131 PO (18:26)
[2018-04-24] MEDS ORDERED: LEVE500T53 PO (18:26)
[2018-04-24] MEDS ORDERED: LEVO50TA PO (18:26)
[2018-04-24] MEDS ORDERED: TRAZ-136 PO (18:26)
[2018-04-24] MEDS ORDERED: LISI-167 PO (18:26)
[2018-04-24 19:39] VITALS: BP 124/78
[2018-04-24] MEDS: ATORVASTATIN 20 MG TABLET PO SCH (20:43)
[2018-04-24] MEDS: TRAZODONE 50MG TABLET PO SCH (20:43)
[2018-04-25] MEDS: LEVOTHYROXINE 50 MCG TABLET PO SCH (06:16)
[2018-04-25 07:39] VITALS: BP 143/89
[2018-04-25] MEDS: PANTOPROZOLE 40MG TABLET PO SCH (08:28)
[2018-04-25] MEDS: ASPIRIN 325 MG TABLET PO SCH (08:28)
[2018-04-25] MEDS: LEVETIRACETAM 500 MG TABLET PO SCH (08:28)
[2018-04-25] MEDS: POTASSIUM CHLORIDE 10 MEQ TABLET.ER PO SCH (08:29)
[2018-04-25] MEDS: LISINOPRIL 10 MG TABLET PO SCH (08:29)
[2018-04-25] MEDS: OXCARBAZEPINE 300MG TABLET PO SCH ×2 (08:29→20:28)
[2018-04-25] MEDS: CARBIDOPA/LEVODOPA CR 25 MG/100 MG TABLET PO SCH ×3 (08:29→20:28)
[2018-04-25] MEDS: NYSTATIN TOPICAL POWDER 15GM TP SCH ×2 (09:35→20:34)
[2018-04-25 19:21] VITALS: BP 127/85
[2018-04-25] MEDS: TRAZODONE 50MG TABLET PO SCH (20:27)
[2018-04-25] MEDS: ATORVASTATIN 20 MG TABLET PO SCH (20:30)
[2018-04-26] MEDS: LEVOTHYROXINE 50 MCG TABLET PO SCH (05:44)
[2018-04-26 07:39] VITALS: BP 115/76
[2018-04-26] MEDS: LISINOPRIL 10 MG TABLET PO SCH (08:11)
[2018-04-26] MEDS: PANTOPROZOLE 40MG TABLET PO SCH (08:11)
[2018-04-26] MEDS: OXCARBAZEPINE 300MG TABLET PO SCH ×2 (08:11→20:17)
[2018-04-26] MEDS: CARBIDOPA/LEVODOPA CR 25 MG/100 MG TABLET PO SCH ×3 (08:11→20:17)
[2018-04-26] MEDS: LEVETIRACETAM 500 MG TABLET PO SCH (08:11)
[2018-04-26] MEDS: ASPIRIN 325 MG TABLET PO SCH (08:11)
[2018-04-26] MEDS: POTASSIUM CHLORIDE 10 MEQ TABLET.ER PO SCH (08:11)
[2018-04-26] MEDS: NYSTATIN TOPICAL POWDER 15GM TP SCH ×2 (08:32→20:18)
[2018-04-26 19:52] VITALS: BP 88/56
[2018-04-26 20:07] VITALS: BP 112/81
[2018-04-26] MEDS: TRAZODONE 50MG TABLET PO SCH (20:17)
[2018-04-26] MEDS: ATORVASTATIN 20 MG TABLET PO SCH (20:17)
[2018-04-27] MEDS: LEVOTHYROXINE 50 MCG TABLET PO SCH (06:02)
[2018-04-27 07:09] VITALS: BP 119/82
[2018-04-27] MEDS: PANTOPROZOLE 40MG TABLET PO SCH (07:40)
[2018-04-27] MEDS: LEVETIRACETAM 500 MG TABLET PO SCH (08:02)
[2018-04-27] MEDS: ASPIRIN 325 MG TABLET PO SCH (08:02)
[2018-04-27] MEDS: CARBIDOPA/LEVODOPA CR 25 MG/100 MG TABLET PO SCH ×3 (08:02→15:20)
[2018-04-27] MEDS: POTASSIUM CHLORIDE 10 MEQ TABLET.ER PO SCH (08:02)
[2018-04-27] MEDS: LISINOPRIL 10 MG TABLET PO SCH (08:02)
[2018-04-27] MEDS: OXCARBAZEPINE 300MG TABLET PO SCH (08:02)
[2018-04-27] MEDS: NYSTATIN TOPICAL POWDER 15GM TP SCH (08:03)
[2018-04-27 12:33] VITALS: BP 103/66
== END 2018-04-27 15:30 | DRG 57 ==
LOC: 3E 12:56
PROVIDERS: ADMIT Psychiatry & Neurology Psychosomatic Medicine; ATTEND Psychiatry & Neurology Psychosomatic Medicine
DX: G30.9 Alzheimer's disease, unspecified (principal); F01.51 Vascular dementia, unspecified severity, with behavioral disturbance; F20.0 Paranoid schizophrenia; Z68.41 Body mass index [BMI] 40.0-44.9, adult; D72.829 Elevated white blood cell count, unspecified; E66.01 Morbid (severe) obesity due to excess calories; G20 Parkinson's disease; I11.9 Hypertensive heart disease without heart failure; I25.10 Atherosclerotic heart disease of native coronary artery without angina pectoris; E03.9 Hypothyroidism, unspecified; E78.5 Hyperlipidemia, unspecified; G40.909 Epilepsy, unspecified, not intractable, without status epilepticus; E87.6 Hypokalemia; G47.00 Insomnia, unspecified; J44.9 Chronic obstructive pulmonary disease, unspecified; K21.9 Gastro-esophageal reflux disease without esophagitis; K59.00 Constipation, unspecified; Z79.82 Long term (current) use of aspirin; Z88.8 Allergy status to other drugs, medicaments and biological substances; Z90.49 Acquired absence of other specified parts of digestive tract; Z79.899 Other long term (current) drug therapy
CPT/HCPCS: 36415; 71045; 80053; 80061; 81003; 82140; 82607; 82746; 84436; 84443; 84484; 85025; 85651; 86592; 93005; 92523-GN; G0515-GN

== ENCOUNTER 2019-04-02 04:20 | Inpatient (IN) | payer MEDICARE, MEDICAID ==
[~2019-04-02] VITALS: Ht 180.3 cm; Wt 121.1 kg
[2019-04-04 08:00] VITALS: BP 105/72
== END 2019-04-04 12:27 | disposition short-term general hospital (02) | DRG 885 ==
LOC: 3E 04-03 12:22 → CCU 04-04 12:13
PROVIDERS: ADMIT Psychiatry & Neurology Psychosomatic Medicine; ATTEND Psychiatry & Neurology Psychosomatic Medicine
DX: F29 Unspecified psychosis not due to a substance or known physiological condition (principal); G93.41 Metabolic encephalopathy; F02.81 Dementia in other diseases classified elsewhere, unspecified severity, with behavioral disturbance; G30.9 Alzheimer's disease, unspecified; F20.0 Paranoid schizophrenia; E03.9 Hypothyroidism, unspecified; E66.9 Obesity, unspecified; E78.5 Hyperlipidemia, unspecified; F39 Unspecified mood [affective] disorder; G20 Parkinson's disease; G40.909 Epilepsy, unspecified, not intractable, without status epilepticus; G47.00 Insomnia, unspecified; I11.9 Hypertensive heart disease without heart failure; I25.10 Atherosclerotic heart disease of native coronary artery without angina pectoris; J44.9 Chronic obstructive pulmonary disease, unspecified; K21.9 Gastro-esophageal reflux disease without esophagitis; R41.0 Disorientation, unspecified; K59.00 Constipation, unspecified; Z79.82 Long term (current) use of aspirin; Z79.899 Other long term (current) drug therapy; Z90.49 Acquired absence of other specified parts of digestive tract; Z68.37 Body mass index [BMI] 37.0-37.9, adult
CPT/HCPCS: 36415; 71045; 80048; 80053; 80061; 82140; 82533; 82607; 82962; 83690; 84439; 84443; 84484; 85025; 85651; 86592; 93005

== ENCOUNTER 2019-04-04 12:39 | Inpatient (IN) | payer MEDICARE, MEDICAID ==
[~2019-04-04] VITALS: Ht 177.8 cm; Wt 124.1 kg
[2019-04-04 13:45] VITALS: BP 101/64
== END 2019-04-05 10:58 | DRG 312 ==
LOC: CCU 12:39
PROVIDERS: ADMIT Hospitalist; ATTEND Hospitalist
DX: I95.2 Hypotension due to drugs (principal); F02.81 Dementia in other diseases classified elsewhere, unspecified severity, with behavioral disturbance; F20.0 Paranoid schizophrenia; E03.9 Hypothyroidism, unspecified; E04.1 Nontoxic single thyroid nodule; E78.5 Hyperlipidemia, unspecified; F32.9 Major depressive disorder, single episode, unspecified; G20 Parkinson's disease; G30.9 Alzheimer's disease, unspecified; G40.909 Epilepsy, unspecified, not intractable, without status epilepticus; I10 Essential (primary) hypertension; I25.10 Atherosclerotic heart disease of native coronary artery without angina pectoris; Z88.8 Allergy status to other drugs, medicaments and biological substances; I77.819 Aortic ectasia, unspecified site; J44.9 Chronic obstructive pulmonary disease, unspecified; K21.9 Gastro-esophageal reflux disease without esophagitis; T46.4X5A Adverse effect of angiotensin-converting-enzyme inhibitors, initial encounter; Y92.89 Other specified places as the place of occurrence of the external cause; Z90.49 Acquired absence of other specified parts of digestive tract
CPT/HCPCS: 36415; 36600; 70450; 71250; 80048; 81003; 82140; 82803; 83735; 84100; 84439; 84443; 85025; 87081; G0378; J1652; J7030

== ENCOUNTER 2019-04-05 09:30 | Inpatient (IN) | payer MEDICARE, MEDICAID ==
[~2019-04-05] VITALS: Ht 175.3 cm; Wt 127.6 kg
[~2019-04-05 09:30] MED LIST changes: +ATOR20TA37 PO; -ATOR20TA9 PO; +DOCU-131 PO; +LEVO50TA PO; +LISI-167 PO; +NYST60PO TP; +OXCA300T19 PO; +POLY17PO5 PO; +POTA10TA5 PO; -QUET25TA PO; +QUET25TA7 PO; +RISP2TAB3 PO; -TRAZ-136 PO; +TRAZ50TA66 PO
[2019-04-05] MEDS ORDERED: ONDANSETRON ODT 4 MG PO PRN (10:00)
[2019-04-05] MEDS ORDERED: POLYETHYLENE GLYCOL 17 GM PACKET PO PRN (10:00)
[2019-04-05] MEDS ORDERED: DOCUSATE 100 MG CAPSULE PO PRN (10:00)
[2019-04-05] MEDS ORDERED: BISACODYL 10 MG SUPP PR PRN (10:00)
[2019-04-05] MEDS ORDERED: ACETAMINOPHEN 325 MG TABLET PO PRN (10:00)
[2019-04-05] MEDS ORDERED: NYST15PO2 TP (10:17)
[2019-04-05] MEDS ORDERED: TAMS-11 PO (10:17)
[2019-04-05 11:43] VITALS: BP 132/86
[2019-04-05] MEDS: CARBIDOPA/LEVODOPA CR 25 MG/100 MG TABLET PO SCH ×2 (18:09→21:26)
[2019-04-05] MEDS ORDERED: TRAZODONE 50MG TABLET PO SCH (21:00)
[2019-04-05 21:23] VITALS: BP 134/90
[2019-04-05] MEDS: QUETIAPINE 100MG TABLET PO SCH (21:25)
[2019-04-05] MEDS: MELATONIN 5 MG TABLET PO SCH (21:25)
[2019-04-05] MEDS: DIVALPROEX 500 MG TABLET.DR PO SCH (21:25)
[2019-04-05] MEDS: ATORVASTATIN 20 MG TABLET PO SCH (21:25)
[2019-04-05] MEDS: OXCARBAZEPINE 150 MG TABLET PO SCH (21:26)
[2019-04-05] MEDS: RISPERIDONE 2 MG TABLET PO SCH (21:27)
[2019-04-06] MEDS ORDERED: ASPIRIN 325 MG TABLET PO SCH (06:00)
[2019-04-06] MEDS: LEVOTHYROXINE 50 MCG TABLET PO SCH (06:08)
[2019-04-06 07:39] VITALS: BP 134/87
[2019-04-06] MEDS: OXCARBAZEPINE 150 MG TABLET PO SCH ×2 (08:48→20:29)
[2019-04-06] MEDS: DIVALPROEX 500 MG TABLET.DR PO SCH ×2 (08:48→20:30)
[2019-04-06] MEDS: CARBIDOPA/LEVODOPA CR 25 MG/100 MG TABLET PO SCH ×3 (08:48→20:29)
[2019-04-06] MEDS: ASPIRIN 325 MG TABLET PO SCH (08:49)
[2019-04-06] MEDS: QUETIAPINE 100MG TABLET PO SCH ×2 (08:49→20:30)
[2019-04-06] MEDS: LEVETIRACETAM 500 MG TABLET PO SCH (08:49)
[2019-04-06] MEDS: RISPERIDONE 2 MG TABLET PO SCH ×2 (08:49→20:30)
[2019-04-06] MEDS ORDERED: LISINOPRIL 10 MG TABLET PO SCH (09:00)
[2019-04-06 19:45] VITALS: BP 143/90
[2019-04-06] MEDS: MELATONIN 5 MG TABLET PO SCH (20:30)
[2019-04-06] MEDS: ATORVASTATIN 20 MG TABLET PO SCH (20:30)
[2019-04-07] MEDS: LEVOTHYROXINE 50 MCG TABLET PO SCH (05:09)
[2019-04-07 07:30] VITALS: BP 158/98
[2019-04-07] MEDS: DIVALPROEX 500 MG TABLET.DR PO SCH ×2 (08:53→20:28)
[2019-04-07] MEDS: OXCARBAZEPINE 150 MG TABLET PO SCH ×2 (08:53→20:27)
[2019-04-07] MEDS: ASPIRIN 325 MG TABLET PO SCH (08:53)
[2019-04-07] MEDS: LEVETIRACETAM 500 MG TABLET PO SCH (08:53)
[2019-04-07] MEDS: CARBIDOPA/LEVODOPA CR 25 MG/100 MG TABLET PO SCH ×3 (08:54→20:28)
[2019-04-07 09:35] VITALS: BP 163/88
[2019-04-07] MEDS: QUETIAPINE 100MG TABLET PO SCH ×2 (09:35→20:28)
[2019-04-07] MEDS: RISPERIDONE 2 MG TABLET PO SCH ×2 (09:35→20:27)
[2019-04-07 10:20] VITALS: BP 138/85
[2019-04-07 11:38] VITALS: BP 136/90
[2019-04-07 19:27] VITALS: BP 155/99
[2019-04-07] MEDS: MELATONIN 5 MG TABLET PO SCH (20:28)
[2019-04-07] MEDS: ATORVASTATIN 20 MG TABLET PO SCH (20:28)
[2019-04-08] MEDS: LEVOTHYROXINE 50 MCG TABLET PO SCH (05:51)
[2019-04-08 07:42] VITALS: BP 116/84
[2019-04-08] MEDS: ASPIRIN 325 MG TABLET PO SCH (08:30)
[2019-04-08] MEDS: LEVETIRACETAM 500 MG TABLET PO SCH (08:30)
[2019-04-08] MEDS: DIVALPROEX 500 MG TABLET.DR PO SCH ×2 (08:30→21:20)
[2019-04-08] MEDS: RISPERIDONE 2 MG TABLET PO SCH ×2 (08:30→21:20)
[2019-04-08] MEDS: QUETIAPINE 100MG TABLET PO SCH ×2 (08:31→21:20)
[2019-04-08] MEDS: OXCARBAZEPINE 150 MG TABLET PO SCH ×2 (08:31→21:20)
[2019-04-08] MEDS: CARBIDOPA/LEVODOPA CR 25 MG/100 MG TABLET PO SCH ×3 (08:31→21:20)
[2019-04-08 19:49] VITALS: BP 129/88
[2019-04-08] MEDS: MELATONIN 5 MG TABLET PO SCH (21:20)
[2019-04-08] MEDS: ATORVASTATIN 20 MG TABLET PO SCH (21:20)
[2019-04-09] MEDS: LEVOTHYROXINE 50 MCG TABLET PO SCH (05:52)
[2019-04-09 07:36] VITALS: BP 128/89
[2019-04-09] MEDS: DIVALPROEX 500 MG TABLET.DR PO SCH ×2 (08:25→20:45)
[2019-04-09] MEDS: LEVETIRACETAM 500 MG TABLET PO SCH (08:25)
[2019-04-09] MEDS: ASPIRIN 325 MG TABLET PO SCH (08:25)
[2019-04-09] MEDS: QUETIAPINE 100MG TABLET PO SCH ×2 (08:26→20:45)
[2019-04-09] MEDS: RISPERIDONE 2 MG TABLET PO SCH ×2 (08:26→20:45)
[2019-04-09] MEDS: CARBIDOPA/LEVODOPA CR 25 MG/100 MG TABLET PO SCH ×3 (08:26→20:46)
[2019-04-09] MEDS: OXCARBAZEPINE 150 MG TABLET PO SCH ×2 (08:26→20:44)
[2019-04-09 19:34] VITALS: BP 143/89
[2019-04-09] MEDS: ATORVASTATIN 20 MG TABLET PO SCH (20:45)
[2019-04-09] MEDS: MELATONIN 5 MG TABLET PO SCH (20:45)
[2019-04-10] MEDS: LEVOTHYROXINE 50 MCG TABLET PO SCH (05:10)
[2019-04-10 07:46] VITALS: BP 147/95
[2019-04-10] MEDS: ASPIRIN 325 MG TABLET PO SCH (09:02)
[2019-04-10] MEDS: CARBIDOPA/LEVODOPA CR 25 MG/100 MG TABLET PO SCH ×3 (09:02→21:12)
[2019-04-10] MEDS: DIVALPROEX 500 MG TABLET.DR PO SCH ×2 (09:02→21:12)
[2019-04-10] MEDS: OXCARBAZEPINE 150 MG TABLET PO SCH ×2 (09:02→21:12)
[2019-04-10] MEDS: QUETIAPINE 100MG TABLET PO SCH ×2 (09:03→21:12)
[2019-04-10] MEDS: RISPERIDONE 2 MG TABLET PO SCH ×2 (09:03→21:12)
[2019-04-10] MEDS: LEVETIRACETAM 500 MG TABLET PO SCH (09:04)
[2019-04-10 19:30] VITALS: BP 121/77
[2019-04-10] MEDS: ATORVASTATIN 20 MG TABLET PO SCH (21:11)
[2019-04-10] MEDS: MELATONIN 5 MG TABLET PO SCH (21:12)
[2019-04-11] MEDS: LEVOTHYROXINE 50 MCG TABLET PO SCH (06:04)
[2019-04-11 07:47] VITALS: BP 134/83
[2019-04-11] MEDS: QUETIAPINE 100MG TABLET PO SCH ×2 (09:00→21:13)
[2019-04-11] MEDS: LEVETIRACETAM 500 MG TABLET PO SCH (09:16)
[2019-04-11] MEDS: DIVALPROEX 500 MG TABLET.DR PO SCH ×2 (09:16→21:13)
[2019-04-11] MEDS: OXCARBAZEPINE 150 MG TABLET PO SCH ×2 (09:17→21:13)
[2019-04-11] MEDS: CARBIDOPA/LEVODOPA CR 25 MG/100 MG TABLET PO SCH ×3 (09:17→21:13)
[2019-04-11] MEDS: RISPERIDONE 2 MG TABLET PO SCH ×2 (09:17→21:13)
[2019-04-11] MEDS: ASPIRIN 325 MG TABLET PO SCH (09:17)
[2019-04-11 19:30] VITALS: BP_SYST 167; BP_SYST 171; BP_DIAS 101; BP_DIAS 106
[2019-04-11] MEDS ORDERED: LABETALOL 5MG/ML, 20ML IVPush PRN (20:30)
[2019-04-11] MEDS: CEFTRIAXONE PMX 1GM/50ML 50 ML IV SCH (20:30)
[2019-04-11 20:59] LABS: BASOPHILS # (AUTO) 0.01 x10^3/uL (0-0.1); BASOPHILS % (AUTO) 0 % (0-1); EOSINOPHILS # (AUTO) 0.19 x10^3/uL (0-0.4); EOSINOPHILS % (AUTO) 2 % (1-7); LYMPHOCYTES # (AUTO) 0.69 x10^3/uL (1-3.4); LYMPHOCYTES % (AUTO) 7 % (22-44); MD NO; MEAN CORPUSCULAR HEMOGLOBIN 32.3 pg (27.5-34.5); MEAN CORPUSCULAR HGB CONC 33.3 g/dL (33.2-36.2); MEAN PLATELET VOLUME 7.8 fL (7.4-10.4); MONOCYTES # (AUTO) 0.97 x10^3/uL (0.2-0.8); MONOCYTES % (AUTO) 10 % (2-9); NEUTROPHILS # (AUTO) 7.91 x10^3/uL (1.8-6.8); NEUTROPHILS % (AUTO) 81 % (42-75); PLATELET COUNT 237 x10^3/uL (130-400); RED BLOOD COUNT 4.65 x10^6/uL (4.38-5.82); RED CELL DISTRIBUTION WIDTH 13.6 % (9.4-14.8)
[2019-04-11 21:10] LABS: ANION GAP 7 mmol/L (5-15); CALCIUM 9.8 mg/dL (8.5-10.1); CHLORIDE 106 mmol/L (98-107); INTERNATIONAL NORMALIZED RATIO 1.08 (0.93-1.1); PROTHROMBIN TIME 11.3 Seconds (9.6-11.5)
[2019-04-11 21:11] LABS: ALANINE AMINOTRANSFERASE 8 U/L (12-78); ALBUMIN 3.6 g/dL (3.4-5.0)
[2019-04-11] MEDS: ATORVASTATIN 20 MG TABLET PO SCH (21:13)
[2019-04-11] MEDS: MELATONIN 5 MG TABLET PO SCH (21:13)
[2019-04-11 21:21] LABS: ALKALINE PHOSPHATASE 100 U/L (45-117); BILIRUBIN,TOTAL 0.6 mg/dL (0.2-1.0); TOTAL PROTEIN 7.3 g/dL (6.4-8.2)
[2019-04-12] VITALS (17 sets, daily range): BP systolic 100–146; BP diastolic 66–90
[2019-04-12] MEDS: LEVOTHYROXINE 50 MCG TABLET PO SCH (05:41)
[2019-04-12 08:26] LABS: MICROSCOPIC AUTO
[2019-04-12 08:30] LABS: CULTURE INDICATED? YES
[2019-04-12] MEDS: LEVETIRACETAM 500 MG TABLET PO SCH (08:34)
[2019-04-12] MEDS: DIVALPROEX 500 MG TABLET.DR PO SCH ×2 (08:34→21:17)
[2019-04-12] MEDS: ASPIRIN 325 MG TABLET PO SCH (08:34)
[2019-04-12] MEDS: CARBIDOPA/LEVODOPA CR 25 MG/100 MG TABLET PO SCH ×3 (08:35→21:17)
[2019-04-12] MEDS: RISPERIDONE 2 MG TABLET PO SCH ×2 (08:35→21:19)
[2019-04-12] MEDS: QUETIAPINE 100MG TABLET PO SCH ×2 (08:35→21:17)
[2019-04-12] MEDS: OXCARBAZEPINE 150 MG TABLET PO SCH ×2 (08:36→21:17)
[2019-04-12] MEDS: CEFTRIAXONE PMX 1GM/50ML 50 ML IV SCH (09:15)
--- NOTE | 2019-04-12 10:44 | NUR ---
TOMASA GILBERT - Fall Risk Medication(s) present and receiving anticoagulants.
[2019-04-12 15:56] LABS: ANION GAP 7 mmol/L (5-15); CALCIUM 9.2 mg/dL (8.5-10.1); CHLORIDE 105 mmol/L (98-107); CREATININE 1.03 mg/dL (0.7-1.3)
[2019-04-12 19:17] LABS: BASOPHILS # (AUTO) 0.02 x10^3/uL (0-0.1); BASOPHILS % (AUTO) 0 % (0-1); EOSINOPHILS % (AUTO) 1 % (1-7); LYMPHOCYTES # (AUTO) 0.73 x10^3/uL (1-3.4); LYMPHOCYTES % (AUTO) 6 % (22-44); MD SCAN; MEAN CORPUSCULAR HEMOGLOBIN 32.5 pg (27.5-34.5); MEAN CORPUSCULAR HGB CONC 33.4 g/dL (33.2-36.2); MEAN CORPUSCULAR VOLUME 97.2 fL (81-97); MEAN PLATELET VOLUME 8.7 fL (7.4-10.4); MONOCYTES # (AUTO) 1.19 x10^3/uL (0.2-0.8); MONOCYTES % (AUTO) 9 % (2-9); NEUTROPHILS # (AUTO) 10.93 x10^3/uL (1.8-6.8); NEUTROPHILS % (AUTO) 84 % (42-75); PLATELET COUNT 145 x10^3/uL (130-400); RED CELL DISTRIBUTION WIDTH 13.7 % (9.4-14.8)
[2019-04-12] MEDS ORDERED: LISINOPRIL 10 MG TABLET PO ONE (21:00)
[2019-04-12] MEDS: MELATONIN 5 MG TABLET PO SCH (21:17)
[2019-04-12] MEDS: ATORVASTATIN 20 MG TABLET PO SCH (21:17)
[2019-04-13] MEDS ORDERED: ACETAMINOPHEN 325 MG TABLET PO PRN (01:30)
[2019-04-13] MEDS ORDERED: CEFTRIAXONE PMX 2GM/50ML 50 ML IV SCH (01:30)
[2019-04-13] MEDS ORDERED: hydrALAzine 20 MG/ML, 1ML IVPush PRN (01:30)
[2019-04-13] MEDS ORDERED: LIDODERM 5% PATCH TD PRN (01:30)
[2019-04-13] MEDS ORDERED: LISINOPRIL 10 MG TABLET PO SCH (09:00)
[2019-04-19] MEDS ORDERED: AMOX1TAB12 PO (08:29)
[2019-04-19] MEDS ORDERED: QUET100T PO (08:29)
[2019-04-19] MEDS ORDERED: RISP2TAB35 PO (08:29)
[2019-04-19] MEDS ORDERED: QUET200T PO (08:29)
[2019-04-19] MEDS ORDERED: LISI-167 PO (08:29)
[2019-04-19] MEDS ORDERED: MELA5TAB14 PO (08:29)
[2019-04-24] MEDS ORDERED: TRAZ50TA66 PO (15:45)
[2019-04-24] MEDS ORDERED: QUET100T PO (15:45)
== END 2019-04-13 01:15 | disposition short-term general hospital (02) | DRG 885 ==
LOC: 3E 11:11
PROVIDERS: ADMIT Psychiatry & Neurology Psychosomatic Medicine; ATTEND Psychiatry & Neurology Psychosomatic Medicine
PROC: 0T9B70Z Drainage of Bladder with Drainage Device, Via Natural or Artificial Opening (ICD-10-PCS; principal; 2019-04-12)
DX: F20.0 Paranoid schizophrenia (principal); A41.9 Sepsis, unspecified organism; F05 Delirium due to known physiological condition; F02.81 Dementia in other diseases classified elsewhere, unspecified severity, with behavioral disturbance; G30.9 Alzheimer's disease, unspecified; R45.1 Restlessness and agitation; Z88.8 Allergy status to other drugs, medicaments and biological substances; E03.9 Hypothyroidism, unspecified; Z66 Do not resuscitate; E78.5 Hyperlipidemia, unspecified; G20 Parkinson's disease; G40.909 Epilepsy, unspecified, not intractable, without status epilepticus; G47.00 Insomnia, unspecified; I11.9 Hypertensive heart disease without heart failure; I25.10 Atherosclerotic heart disease of native coronary artery without angina pectoris; J44.9 Chronic obstructive pulmonary disease, unspecified; K21.9 Gastro-esophageal reflux disease without esophagitis; Z79.82 Long term (current) use of aspirin
CPT/HCPCS: 36415; 70450; 80048; 80053; 81001; 83605; 84443; 85025; 85610; 85730; 87077; 87086; 87186; G0103; J0696